=== PATIENT | male | born 1970 | race Caucasian/White ===

== ENCOUNTER 2024-10-30 04:34 | Day surgery (SDC) | payer OTHER ==
[2024-10-30] VITALS (205 sets, daily range): BP systolic 111–166; BP diastolic 72–102
[~2024-10-30] VITALS: Ht 185.4 cm; Wt 84.0 kg
[2024-10-30] MEDS ORDERED: SODIUM CHLORIDE 0.9% 1,000 ML IV PRN ×3 (07:00→13:50)
[2024-10-30] MEDS ORDERED: FAMOTIDINE 20 MG/TAB PO PRN (07:30)
[2024-10-30] MEDS ORDERED: diazePAM 5 MG/TAB PO PRN ×3 (07:30→20:15)
[2024-10-30] MEDS ORDERED: CYANOCOBALAMIN 500 MCG/TAB ( B12) PO PRN (07:30)
[2024-10-30] MEDS ORDERED: PANTOPRAZOLE SODIUM Sesquihydr 40 MG/TAB PO PRN (07:30)
[2024-10-30] MEDS ORDERED: ALBUTEROL SULFATE 2.5 MG VIAL IN PRN (07:30)
[2024-10-30] MEDS ORDERED: cloNIDine HCL 0.1 MG/TAB PO PRN (07:30)
[2024-10-30] MEDS ORDERED: SCOPOLAMINE 1.5 MG DIS TD PRN (07:30)
[2024-10-30] MEDS ORDERED: LACTATED RINGER'S 1,000 ML IV PRN ×2 (07:30→09:45)
[2024-10-30] MEDS ORDERED: DEXMEDETOMIDINE HCL IN SODIUM 100 ML IV SCH (07:50)
[2024-10-30] MEDS ORDERED: PHENYLEPHRINE HCL 10 MG in DEXTROSE 5% 250 ML IV SCH (07:55)
[2024-10-30] MEDS ORDERED: ASCORBIC ACID 4,000 MG in SODIUM CHLORIDE 0.9% 1,000 ML IV SCH (08:00)
[2024-10-30 08:58] LABS: BASO% 0.2 % (0-3); EOS% 2.7 % (0-8); HEMATOCRIT 40.9 % (39.0-50.0); HEMOGLOBIN 14.1 g/dl (14.0-18.0); LYMPH% 17.7 % (15-41); MEAN CELL VOLUME 90.7 fL CALC (80.0-100.0); MEAN CORPUSCULAR HGB 31.3 pG CALC (26.0-32.0); MEAN CORPUSCULAR HGB CONC 34.5 g/dL CAL (32.0-36.0); MONO% 6.3 % (2-13); NEUT# 6.12 thou/uL (1.82-7.42); NEUT% 73.1 % (42-76); RED BLOOD COUNT 4.51 mill/uL (4.70-6.10); RED CELL DISTRI WIDTH 11.7 % (11.5-15.5)
[2024-10-30] MEDS ORDERED: TOPROL XL50 MG PO (09:13)
[2024-10-30] MEDS ORDERED: DIOVAN HCT PO (09:14)
[2024-10-30 09:15] LABS: ALBUMIN 3.9 g/dL (3.2-5.0); BILIRUBIN, TOTAL 0.6 mg/dL (0.2-1.3); CREATININE 0.6 mg/dL (0.7-1.3); POTASSIUM 3.8 mmol/l (3.5-5.1); TOTAL PROTEIN 6.6 g/dL (6.3-8.2)
[2024-10-30] MEDS ORDERED: CLONIDINE0.2 MG PO (09:15)
[2024-10-30] MEDS ORDERED: ATIVAN1 M1 PO (09:15)
[2024-10-30] MEDS ORDERED: LIDOCAINE HCL 1% (10MG/ML) 100 MG/10 ML MDV VT PRN ×2 (09:45)
[2024-10-30] MEDS ORDERED: cloNIDine HYDROCHLORIDE 100 MCG/ML 10 ML INJ IV PRN (09:45)
[2024-10-30] MEDS ORDERED: DiphenhydrAMINE HCL 50 MG/ML SDV IV PRN (09:45)
[2024-10-30] MEDS ORDERED: THIAMINE HCL 100 MG/ML 2ML VIAL IV PRN (09:45)
[2024-10-30] MEDS ORDERED: diazePAM 5 MG/TAB VT PRN (09:45)
[2024-10-30] MEDS ORDERED: OCTREOTIDE ACETATE 100 MCG/VIAL SDV SC PRN (09:45)
[2024-10-30] MEDS ORDERED: ONDANSETRON HCl 4 MG/2 ML SDV IV PRN ×3 (09:45→19:00)
[2024-10-30] MEDS ORDERED: LIDOCAINE HCL 1% (10MG/ML) 100 MG/10 ML MDV IV PRN (09:45)
[2024-10-30] MEDS ORDERED: cloNIDine HCL 0.1 MG/TAB VT PRN (09:45)
[2024-10-30] MEDS ORDERED: PROPOFOL 10 MG/ML 100ML VIAL IV PRN (09:45)
[2024-10-30] MEDS ORDERED: ROCURONIUM BROMIDE 10 MG/ML 5 ML VIAL IV PRN (09:45)
[2024-10-30] MEDS ORDERED: NALTREXONE HCL 50 MG/TAB VT PRN (09:45)
[2024-10-30] MEDS ORDERED: MAGNESIUM SULFATE HEPTAHYDRATE 100 ML IV PRN (09:45)
[2024-10-30] MEDS ORDERED: MIDAZOLAM HCL 2 MG/2 ML VIAL IV PRN ×3 (09:45→13:55)
[2024-10-30] MEDS ORDERED: PROPOFOL 100 ML IV PRN (09:45)
[2024-10-30] MEDS ORDERED: STERILE WATER FOR IRRIGATION 1,000 ML BTL IR PRN (09:45)
[2024-10-30] MEDS ORDERED: POTASSIUM CHLORIDE 20 MEQ/100 ML BAG IV PRN (09:45)
[2024-10-30] MEDS ORDERED: SUCCINYLCHOLINE CHLORIDE 20 MG/ML 10ML VIAL IV PRN (09:45)
[2024-10-30] MEDS ORDERED: NALTREXONE50 MG PO (18:00)
[2024-10-30] MEDS ORDERED: CLONIDINE0.1 MG PO (18:01)
[2024-10-30] MEDS ORDERED: KLONOPIN2 MG PO (18:01)
[2024-10-30] MEDS ORDERED: PROMETHAZINE HCL 12.5 MG in SODIUM CHLORIDE 0.9% 50 ML IV PRN (19:00)
[2024-10-30] MEDS ORDERED: HALOPERIDOL LACTATE 5 MG/ML SDV IV PRN ×2 (19:00→20:15)
[2024-10-30] MEDS ORDERED: KETOROLAC TROMETHAMINE 30 MG/ML SDV IV PRN ×2 (19:00→20:20)
[2024-10-30] MEDS ORDERED: PROMETHAZINE HCL 25 MG in SODIUM CHLORIDE 0.9% 50 ML IV PRN (19:00)
[2024-10-30] MEDS ORDERED: ACETAMINOPHEN 500 MG TAB PO PRN (19:00)
[2024-10-30] MEDS ORDERED: ACETAMINOPHEN 1,000 MG/100 ML VIAL IV PRN (19:00)
[2024-10-30] MEDS ORDERED: LORazepam 2 MG/ML IV PRN (20:15)
[2024-10-30] MEDS ORDERED: PHENAZOPYRIDINE HCL 100 MG/TAB PO SCH (20:30)
[2024-10-30] MEDS ORDERED: PATIENT' OWN MED CONTROLLED 1 EA DOSE IV PRN (21:00)
[2024-10-30] MEDS ORDERED: cloNIDine HCL 0.1 MG/TAB PO SCH (23:00)
[2024-10-30] MEDS ORDERED: clonazePAM 1 MG/TAB PO PRN (23:00)
[2024-10-31 02:48] VITALS: BP 137/81
[2024-10-31] MEDS ORDERED: NALTREXONE HCL 50 MG/TAB PO SCH (04:00)
[2024-10-31] MEDS ORDERED: cloNIDine HCL 0.1 MG/TAB PO PRN (04:00)
[2024-10-31] MEDS ORDERED: clonazePAM 1 MG/TAB PO PRN ×2 (04:00→08:00)
[2024-10-31 05:36] LABS: BASO% 0.1 % (0-3); HEMATOCRIT 37.4 % (39.0-50.0); HEMOGLOBIN 13.1 g/dl (14.0-18.0); IMMATURE GRANULOCYTES 0.3 % (0.0-5.0); LYMPH% 4.5 % (15-41); MEAN CELL VOLUME 89.3 fL CALC (80.0-100.0); MEAN CORPUSCULAR HGB 31.3 pG CALC (26.0-32.0); MONO% 5.2 % (2-13); NEUT# 12.74 thou/uL (1.82-7.42); NEUT% 89.9 % (42-76); RED BLOOD COUNT 4.19 mill/uL (4.70-6.10); RED CELL DISTRI WIDTH 11.7 % (11.5-15.5)
[2024-10-31 05:44] LABS: ALBUMIN 3.9 g/dL (3.2-5.0); BILIRUBIN, TOTAL 0.7 mg/dL (0.2-1.3); CREATININE 0.6 mg/dL (0.7-1.3); MAGNESIUM 1.9 mg/dL (1.6-2.3); POTASSIUM 3.8 mmol/l (3.5-5.1); TOTAL PROTEIN 6.6 g/dL (6.3-8.2)
[2024-10-31 07:11] VITALS: BP 146/85
[2024-10-31] MEDS ORDERED: PANTOPRAZOLE SODIUM Sesquihydr 40 MG/TAB PO SCH (08:00)
[2024-10-31] MEDS ORDERED: ACETAMINOPHEN 325 MG/TAB PO SCH (08:00)
[2024-10-31] MEDS ORDERED: cloNIDine HCL 0.1 MG/TAB PO SCH ×2 (08:00→23:00)
[2024-10-31] MEDS ORDERED: ACETAMINOPHEN 500 MG TAB PO PRN (09:00)
[2024-10-31] MEDS ORDERED: Cholecalciferol 2,000 UNIT/TAB PO PRN (09:00)
[2024-10-31] MEDS ORDERED: MAGNESIUM OXIDE 400 MG/TAB PO PRN (09:00)
[2024-10-31] MEDS ORDERED: POTASSIUM CHLORIDE 20 MEQ/TAB PO SCH (09:15)
[2024-10-31] MEDS ORDERED: MAGNESIUM OXIDE 400 MG/TAB PO SCH (13:30)
[2024-10-31] MEDS ORDERED: DOCUSATE SODIUM 100 MG/CAP PO SCH (14:00)
[2024-10-31] MEDS ORDERED: HALOPERIDOL LACTATE 5 MG/ML SDV IV PRN (14:55)
[2024-10-31 16:00] VITALS: BP 157/81
[2024-10-31 17:27] VITALS: BP 155/84
[2024-10-31] MEDS ORDERED: LACTATED RINGER'S 1,000 ML IV PRN (19:00)
[2024-10-31 19:20] VITALS: BP 155/84
[2024-10-31 21:44] VITALS: BP 142/70
[2024-10-31] MEDS ORDERED: clonazePAM 1 MG/TAB PO SCH (23:00)
[2024-11-01 03:19] VITALS: BP 140/85
[2024-11-01] MEDS ORDERED: cloNIDine HCL 0.1 MG/TAB PO PRN (04:00)
[2024-11-01] MEDS ORDERED: clonazePAM 1 MG/TAB PO PRN (04:00)
[2024-11-01] MEDS ORDERED: NALTREXONE HCL 50 MG/TAB PO SCH (04:00)
[2024-11-01 05:37] LABS: BASO% 0.1 % (0-3); EOS% 0.2 % (0-8); HEMATOCRIT 37.1 % (39.0-50.0); HEMOGLOBIN 12.7 g/dl (14.0-18.0); IMMATURE GRANULOCYTES 0.1 % (0.0-5.0); LYMPH% 9.3 % (15-41); MEAN CELL VOLUME 90.3 fL CALC (80.0-100.0); MEAN CORPUSCULAR HGB 30.9 pG CALC (26.0-32.0); MEAN CORPUSCULAR HGB CONC 34.2 g/dL CAL (32.0-36.0); NEUT# 8.72 thou/uL (1.82-7.42); NEUT% 82.3 % (42-76); RED BLOOD COUNT 4.11 mill/uL (4.70-6.10); RED CELL DISTRI WIDTH 11.8 % (11.5-15.5)
[2024-11-01 05:47] LABS: ALBUMIN 3.2 g/dL (3.2-5.0); CREATININE 0.7 mg/dL (0.7-1.3); MAGNESIUM 1.8 mg/dL (1.6-2.3); POTASSIUM 3.3 mmol/l (3.5-5.1); TOTAL PROTEIN 5.8 g/dL (6.3-8.2)
[2024-11-01 07:00] VITALS: BP 149/78
[2024-11-01 08:30] VITALS: BP 149/78
[2024-11-01] MEDS ORDERED: POTASSIUM CHLORIDE 20 MEQ/TAB PO SCH (09:30)
== END 2024-11-01 12:41 | disposition home or self-care (01) | DRG 897 ==
LOC: ANR 04:34 → MS2 04:34 → ANR 08:00 → MS2 17:29 → ANR 11-01 12:41
PROVIDERS: ATTEND Anesthesiology Critical Care Medicine
DX: F11.20 Opioid dependence, uncomplicated (principal)
CPT/HCPCS: J1200; J1630; J2060; J2354; J2405; J2704; J3475; J3480; J3490